=== PATIENT | female | born 1990 | race Caucasian/White ===

== ENCOUNTER 2017-02-16 10:14 | Emergency (ER) | payer OTHER ==
[~2017-02-16] VITALS: Ht 162.6 cm; Wt 81.0 kg
[~2017-02-16 10:14] MED LIST: ADVIL200 MG PO; AMOXICILLIN500 MG PO; BACTRIM,SEPT1 TABLET PO; CHROMAGEN,1 CAPSULE PO; IBUPROFEN800 MG PO; ILOTYCIN1 GM BOTH EYES; KEFLEX500 MG PO; MOTRIN800 MG PO; NAPROSYN500 MG PO; NOHOMEMEDS; PYRIDIUM100 MG PO; SUDAFED 12-HOU120 MG PO; ZOFRAN4 MG PO
[2017-02-16 10:44] LABS: ADD MIUA? YES; BILIRUBIN NEGATIVE; BLOOD MODERATE; COLOR YELLOW ((YELLOW)); GLUCOSE (STRIP) NEGATIVE; INTERNAL CONTROL VALID? YES; KETONES NEGATIVE; LEUKOCYTES LARGE; NITRITE NEGATIVE; PROTEIN (STRIP) 30; SPECIFIC GRAVITY 1.017 (1.000-1.030); UROBILINOGEN 0.2 MG/DL (0.2-1.0)
[2017-02-16 11:01] LABS: BACTERIA 3+ /HPF; EPITHELIAL CELLS 1+ /HPF; MUCUS NONE SEEN /LPF; RED BLOOD CELLS 30-40 /HPF (0-5); UCUL ADDED? YES; WHITE BLOOD CELLS TNTC /HPF (0-5)
[2017-02-16] MEDS ORDERED: PYRIDIUM100 MG PO ×2 (11:25→11:57)
[2017-02-16] MEDS ORDERED: KEFLEX500 MG PO ×2 (11:25→11:57)
[2017-02-16 11:33] VITALS: BP 125/73
== END 2017-02-16 16:22 | disposition home or self-care (01) ==
LOC: EME 10:14
DX: N39.0 Urinary tract infection, site not specified (principal)
CPT/HCPCS: 81003; 84703; 87077; 87086; 87186; 99281; 99283

== ENCOUNTER 2017-11-30 11:16 | Emergency (ER) | payer OTHER ==
[~2017-11-30] VITALS: Ht 170.2 cm; Wt 71.0 kg
[2017-11-30 13:44] LABS: APPEARANCE SL.HAZY ((CLEAR)); BILIRUBIN NEGATIVE; BLOOD SMALL; COLOR YELLOW ((YELLOW)); GLUCOSE (STRIP) NEGATIVE; KETONES NEGATIVE; LEUKOCYTES LARGE; NITRITE NEGATIVE; PROTEIN (STRIP) 100; SPECIFIC GRAVITY 1.031 (1.000-1.030); UROBILINOGEN 0.2 MG/DL (0.2-1.0)
[2017-11-30 14:02] LABS: BACTERIA 1+ /HPF; EPITHELIAL CELLS 1+ /HPF; MUCUS 1+ /LPF; RED BLOOD CELLS 0-5 /HPF (0-5); UCUL ADDED? YES; WHITE BLOOD CELLS TNTC /HPF (0-5)
[2017-11-30] MEDS ORDERED: KEFLEX500 MG PO (16:18)
[2017-11-30] MEDS ORDERED: PYRIDIUM200 MG PO (16:30)
[2017-11-30 16:56] VITALS: BP 116/93
== END 2017-11-30 16:57 | disposition home or self-care (01) ==
LOC: EME 11:16
DX: N39.0 Urinary tract infection, site not specified (principal)
CPT/HCPCS: 81003; 87077; 87086; 87186; 87651 90; 99281; 99283

== ENCOUNTER 2017-12-27 18:01 | Emergency (ER) | payer OTHER ==
[~2017-12-27] VITALS: Ht 160 cm; Wt 75.4 kg
[~2017-12-27 18:01] MED LIST changes: +PYRIDIUM200 MG PO
[2017-12-27] MEDS ORDERED: NARCAN4 MG NS (19:51)
[2017-12-27] MEDS ORDERED: NEOMYCIN-POLYMY10 M1 LEFT EAR (20:39)
[2017-12-27 21:07] VITALS: BP 124/82
== END 2017-12-27 21:10 | disposition home or self-care (01) ==
LOC: EME 18:01
DX: T40.1X1A Poisoning by heroin, accidental (unintentional), initial encounter (principal); H60.92 Unspecified otitis externa, left ear; H61.23 Impacted cerumen, bilateral
CPT/HCPCS: 99281; 99285; J2310